=== PATIENT | female | born 1945 | race African-American/Black ===

== ENCOUNTER 2018-05-29 12:05 | Observation (INO) | payer MEDICARE ==
[2018-05-29 13:52] LABS: #Basophils 0.1 thou/uL (0.0-0.2); #Eosinphils 0.1 thou/uL (0.0-0.7); #Lymphocytes 1.9 thou/uL (1.20-3.40); #Monocytes 1.1 thou/uL (0.11-0.59); #Neutrophils 5.8 thou/uL (1.40-6.50); %Basophils 0.6 % (0.0-1.0); %Eosinophils 1.2 % (0.0-10.0); %Lymphocytes 21.3 % (21.0-51.0); %Monocytes 12.3 % (0.0-10.0); %Neutrophils 64.7 % (42.0-75.0); Hemoglobin 15.4 g/dL (12.0-16.0); Mean Corpuscular HGB CONC 35.3 g/dL (32.0-36.0); Mean Corpuscular Hemoglobin 30.8 pg (27.0-31.0); Mean Corpuscular Volume 87.3 fL (78.0-98.0); Mean Platelet Volume 11.2 fL (7.4-10.4); Platelet Count 167 thou/uL (130-400); RBC Distribution Width 13.9 % (11.5-14.5)
[2018-05-29 13:53] LABS: Prothrombin Time 13.5 SEC (12.0-14.7)
[2018-05-29 13:54] LABS: PTT 20.8 SEC (22.9-36.1)
--- NOTE | 2018-05-29 14:14 | RAD ---
CERVICAL SPINE 4 VIEWS: DATE: 05/29/2018. HISTORY: Fall, trauma, pain. FINDINGS: Open mouth odontoid view demonstrates a normal-appearing dens in C1-2 articulation. Cervical vertebr al body height and alignment demonstrate no significant anterolisthesis or retrolisthesis. Artifact from a collar limits detailed assessment of the prevertebral soft tissues. At C5-6, there i s disk space narrowing and anterior osteophyte formation. IMPRESSION: No obvious acute abnormality. Artifact slightly limits detailed assessment. Recommend further evalu ation with CT if symptoms persist given history of trauma and pain. POS: VINCENT
[2018-05-29 14:17] LABS: ALT (SGPT) 13 U/L (8-55); AST (SGOT) 15 U/L (5-34); Albumin 4.3 g/dL (3.4-4.8); Alkaline Phosphatase 55 U/L (40-150); Anion Gap 15 mmol/L (10-20); BUN (Urea Nitrogen) 14 mg/dL (9.8-20.1); Bilirubin, Total 0.8 mg/dL (0.2-1.2); Calc. Creatinine Clearance 0 mL/min (70-130); Calcium 9.6 mg/dL (7.8-10.44); Carbon Dioxide 19 mmol/L (23-31); Chloride 110 mmol/L (98-107); Estimated GFR-MDRD 66; Globulin 2.9 g/dL (2.4-3.5); Glucose 93 mg/dL (83-110); Potassium 3.7 mmol/L (3.5-5.1); Protein, Total 7.2 g/dL (6.0-8.3); Sodium 140 mmol/L (136-145)
--- NOTE | 2018-05-29 14:19 | HP ---
CHIEF COMPLAINT: Fall. HISTORY OF PRESENT ILLNESS: This is a 72-year-old female, who fell off a ladder taken down some decorations in her garage. No loss of consciousness. She remembers the full events. Complaining of right-sided scalp pain and some right-sided neck pain. Seen in the emergency room by Dr. Muñoz. CT scan reveals some subarachnoid blood, tiny subdural hematoma. Neurosurgery has recommended observation and admission to the Trauma Service. The patient denies significant headache, double vision, or motor or sensory loss. She has been hemodynamically neurologically stable since presentation. PAST MEDICAL HISTORY: Hypertension. PAST SURGICAL HISTORY: She denies. MEDICATIONS: Losartan. ALLERGIES: NO KNOWN DRUG ALLERGIES. SOCIAL HISTORY: No smoking, alcohol, or other drugs. REVIEW OF SYSTEMS: Ten system review of systems otherwise negative unless described above. PHYSICAL EXAMINATION: VITAL SIGNS: Blood pressure is 136/77. Her pulse is 80. Her respirations are 14. She is afebrile. HEENT: Pupils 4 mm, reactive bilateral. No oral facial trauma. There is some tenderness to the back of the scalp without laceration. NECK: C-collar is left in place. There is mild right upper posterior neck tenderness, but no tenderness in the cervical posterior midline. No expanding hematoma or bruit. CHEST: Clear. HEART: Regular rate and rhythm. ABDOMEN: Soft, nontender. EXTREMITIES: Lower extremities; no edema or ischemia. Motor and sensory intact throughout. DIAGNOSTIC DATA: CT head, bilateral small amount of subarachnoid blood with a small subdural. CT C-spine is done, but the results are pending. ASSESSMENT: 1. Closed head injury with a small amount of subarachnoid blood, question of small subdural. Neurologically intact. 2. Neck pain, pending results of C-spine CT. PLAN: Admit to observation. Continue her losartan. Followup CT scan. We will await full Neurosurgery recommendations. Job ID: [id number]
--- NOTE | 2018-05-29 14:24 | CT ---
HEAD CT WITHOUT CONTRAST: DATE: 05/29/2018. COMPARISON: None. HISTORY: Fall, trauma, pain, headache. TECHNIQUE: Axial CT imaging is obtained at 5 mm intervals from vertex through the skull base without contrast. FINDINGS: The imaged paranasal sinuses/mastoid air cells demonstrate no acute abnormality. Wall thickening of bilateral maxillary sinuses suggests chronic sinusitis. Vague areas of linear hyperdensity are noted in cortical sulci in the frontoparietal regions bilatera lly, on the left on image 21 and on the right on image 20 suggesting small-volume lateral subarachnoi d blood. No midline shift or mass effect. IMPRESSION: Findings suggesting small-volume bilateral subarachnoid blood. Results called to Dr. Muñoz at 12:55 p.m. 05/29/2018. CODE CR POS: VINCENT
--- NOTE | 2018-05-29 15:23 | CT ---
CT CERVICAL SPINE: Multiple axial tomograms were obtained through the cervical spine with multiplanar reconstruction. INDICATION: Trauma. Fall with injury to neck. FINDINGS: Cervical vertebrae maintain height and alignment. There are mild degenerative changes noted. No harman dence of fracture. Mild posterior spondylosis at C4-5 and C5-6 levels. Soft tissues show mildly enlarged heterogeneous multinodular thyroid. IMPRESSION: 1. Mild degenerative changes cervical spine. No evidence of fracture. 2. Mildly enlarged and heterogeneous multinodular thyroid gland is noted. POS: VINCENT
[2018-05-29] MEDS ORDERED: Ondansetron ODT 4 MG TAB PO PRN (15:29)
[2018-05-29] MEDS ORDERED: Ondansetron PF 4 MG/2 ML Vial IVP PRN (15:29)
[2018-05-29] MEDS ORDERED: Dextrose 5% in Water 1,000 ML IV PRN (15:29)
[2018-05-29] MEDS ORDERED: Dextrose 50% Abboject 50 ML SYRINGE SLOW IVP PRN (15:29)
[2018-05-29] MEDS ORDERED: traMADol HCl 50 MG TAB PO PRN (15:29)
[2018-05-29] MEDS ORDERED: Cyclobenzaprine 10 MG TAB PO PRN (15:29)
[2018-05-29] MEDS ORDERED: Acetaminophen 1,000 MG in Premix Bag 1 BAG IVPB SCH (15:29)
[2018-05-29] MEDS ORDERED: hydrALAZINE 20 MG/ML VIAL SLOW IVP PRN (15:29)
[2018-05-29 18:50] VITALS: BMI 35.0
--- NOTE | 2018-05-29 20:53 | CON ---
DATE OF CONSULTATION: HISTORY OF PRESENT ILLNESS: Ms. Nataly Santos was brought to the Emergency Department this afternoon due to a fall. She states that she was helping her daughter put away some boxes in the attic of her garage. She was on the ladder. She lost her balance and fell backwards and hit her head on the concrete floor. The patient denies any loss of consciousness. She states that she has pain where she hit her head in the occipital region and some neck pain as well as right trapezius pain. The patient denies any blood thinners, aspirin, or fish oil. She has not had any prior strokes, bleeds, heart attacks, or blood clots. She is moving all 4 extremities. She denies any sensory deficits. She is a normally pretty active woman, and so this is quite upsetting for her. REVIEW OF SYSTEMS: A 10-point review of systems has been completed and is negative other than stated in the above HPI. ALLERGIES: NO KNOWN DRUG ALLERGIES. MEDICATIONS: Losartan and hydrochlorothiazide 50 mg-12.5 mg. PAST SURGICAL HISTORY: Bilateral foot surgery for hammer toe and shoulder surgery to have a cyst removed. PAST MEDICAL HISTORY: Hypertension. SOCIAL HISTORY: The patient denies alcohol or drug use. No smoking history. She is an independent lady who lives with her in their home in [facility]. PHYSICAL EXAMINATION: VITAL SIGNS: Blood pressure 149/78, heart rate 67, respirations 18, temperature 98.4, and 99% O2 on room air. CONSTITUTIONAL: The patient is alert and oriented. She is resting comfortably in the hospital bed. She is afebrile, normotensive, nontoxic. HEENT: Head is normocephalic. She has a hematoma on the occipital region of her head. She has a right lateral neck pain. Pupils are equal, round, and reactive to light. Extraocular movements are intact. Hearing is intact. Moist mucous membranes. LUNGS: Respirations, normal work of breathing on room air. CARDIAC: Regular rate and rhythm. Normal S1 and S2. EXTREMITIES: The patient is moving all 4 extremities well. She has 5/5 strength in deltoids, biceps, triceps, legal billing coordinator strength, hip flexion, knee flexion, knee extension, dorsiflexion, plantar flexion. No sensory deficits noted. NEUROLOGIC: The patient is alert and oriented x4. She has normal fund of knowledge. Speech is spontaneous and fluent. Short-term and long-term memory are intact. There are no focal motor or sensory deficits noted. There is no pronator drift. Cranial nerves II through XII are tested and intact. IMAGING DATA: CT brain shows a very small amount of bilateral subarachnoid hemorrhage in cortical sulci in the parietal regions bilaterally. CT of the cervical spine shows some mild degenerative changes of the spinal cord, but no acute fractures. There are also was noted mildly enlarged heterogeneous multinodular thyroid gland. ASSESSMENT AND PLAN: Trauma is admitting Ms. Nataly Santos for bilateral subarachnoid hemorrhage. We will get regular neuro checks, keep her blood pressure below 150. She is not on any blood thinners. She is good and make sure that she does not take any aspirin or fish oil for the next 2 weeks. We will get a repeat CT scan of her head in the morning and the patient should follow up with her primary care for the thyroid nodules noted on CT. Job ID: [id number]
[2018-05-29] MEDS: Acetaminophen 500 MG TAB PO SCH (21:13)
[2018-05-29] MEDS: Famotidine 20 MG TAB PO SCH (21:13)
[2018-05-30] MEDS: Acetaminophen 500 MG TAB PO SCH ×2 (03:24→11:00)
[2018-05-30 06:52] LABS: Hemoglobin 14.1 g/dL (12.0-16.0); Lymphocytes 37 % (21-51); MDiff Complete? YES; Mean Corpuscular HGB CONC 35.1 g/dL (32.0-36.0); Mean Corpuscular Hemoglobin 30.3 pg (27.0-31.0); Mean Corpuscular Volume 86.3 fL (78.0-98.0); Mean Platelet Volume 10.8 fL (7.4-10.4); Monocytes 6 % (0-10); Neutrophil 57 % (42-75); Platelet Count 165 thou/uL (130-400); Platelet Morphology Comment Appears Adequate; RBC Distribution Width 13.7 % (11.5-14.5); Red Blood Cell (RBC) Count 4.66 mill/uL (4.20-5.40)
[2018-05-30 06:54] LABS: Anion Gap 10 mmol/L (10-20); BUN (Urea Nitrogen) 11 mg/dL (9.8-20.1); Calc. Creatinine Clearance 81 mL/min (70-130); Calcium 9.1 mg/dL (7.8-10.44); Carbon Dioxide 23 mmol/L (23-31); Chloride 111 mmol/L (98-107); Estimated GFR-MDRD 75; Glucose 99 mg/dL (83-110); Potassium 3.7 mmol/L (3.5-5.1); Sodium 140 mmol/L (136-145)
[2018-05-30] MEDS: Famotidine 20 MG TAB PO SCH (09:23)
--- NOTE | 2018-05-30 10:00 | PRG ---
DATE OF SERVICE: 05/30/2018 NEUROSURGERY PROGRESS NOTE. I met Nataly Santos in her hospital room this morning. I reviewed her imaging records and medical history and I agreed with the notes of Brandee Dorsey PA-C, dated 05/29/2018. Briefly, Nataly Santos is a 72-year-old woman, was helping to move boxes into the attic of her daughter yesterday, when she fell on 1st or 2nd step of the ladder. She fell backwards and her head did strike the concrete. She was brought to the emergency department, where CT examination of the brain revealed a tiny amount of traumatic subarachnoid hemorrhage in the sulci over the convexities on the left and the right side. Repeat imaging has been done this morning, showing resolution on the right, but some residual blood on the left. It is no larger than it was yesterday. Overnight, Ms. Santos has had headache, but no new neurological deficit. Blood pressures have been in the 120s to 140s. Other vital signs have been stable. When I see Ms. Santos, she is awake, she is alert. She is talking appropriately. There is no dysphasia. Cranial nerves are working well. There are no lateralizing motor or sensory deficits. CT imaging this morning, as noted, shows improvement in the traumatic subarachnoid hemorrhage. Ms. Santos is ready for discharge. I did talk to her about the possibility of vertigo after head injury, the likelihood of headaches, and the possibility of cognitive alteration. Given that her symptoms are particularly mild this morning, I do not think they will be a problem, but she knows to call the ER. Before going home, she will need to prove to the nursing staff that she is safe for the activities of daily living. Followup arrangements will be made for CT scan in two weeks. She will remain off blood thinners until then. Job ID: [id number]
[2018-05-30 12:45] VITALS: BP 116/75; TEMP 97.9
--- NOTE | 2018-05-30 14:34 | DIS ---
DATE OF ADMISSION: 05/29/2018 DATE OF DISCHARGE: 05/30/2018 ADMISSION DIAGNOSES: 1. Status post fall 2. Bilateral Subarachnoid Hemorrhage CONSULTATIONS: Neurosurgery, Dr. Dubon. PROCEDURES: None. HISTORY OF PRESENT ILLNESS: The patient is a 72-year-old woman, who was trying to move some boxes while on a ladder when she fell and landed on a concrete floor. She was brought to the emergency department, where she underwent evaluation and examination and was noted to have subarachnoid hemorrhage and was admitted to the hospital for close observation and a repeat head CT the following morning. The patient did well overnight. Her pain was controlled with nonnarcotic pain medication. She was tolerating a diet and was ambulating. The patient will follow up with Dr. Dubon in 2 weeks for repeat head CT. Dr. Dubon advised her to avoid any blood thinners to include aspirin or nonsteroidal anti-inflammatory medications. He also gave her strict return precautions to follow up sooner if needed. The patient may follow up with the Trauma Clinic if needed. Job ID: [id number] [facility]
--- NOTE | 2018-05-30 16:53 | CT ---
PRELIMINARY REPORT/[facility]/EMERGENTY AFTER-HOURS PROCEDURE CT Head Without Contrast EXAM DATE/TIME: 05/30/2018 4:03 AM CLINICAL HISTORY: 72 years old, female; Condition or disease; Other: Sah; Patient HX: F/u sah TECHNIQUE: Axial computed tomography images of the head/brain without contrast. COMPARISON: CT Brain WO Con 05/29/2018 12:50 PM FINDINGS: Brain: Multifocal subarachnoid hemorrhage has mostly resolved. Only minimal residual subarachnoid hem orrhage is visible in the left frontal lobe. Mild generalized volume loss of the brain. No brain estuardo a. Ventricles: Normal. No ventriculomegaly. Bones/joints: Normal. No acute fracture. Sinuses: Normal as visualized. No acute sinusitis. Mastoid air cells: Normal as visualized. No mastoid effusion. Soft tissues: Normal. IMPRESSION: Multifocal subarachnoid hemorrhage has mostly resolved. Only minimal residual subarachnoid hemorrhage is visible in the left frontal lobe. Thank you for allowing us to participate in the care of your patient. Dictated and Authenticated by: Jered Spangler MD 05/30/2018 4:26 AM Central Time ([place] & [place]) FINAL REPORT HEAD CT WITHOUT CONTRAST: DATE: 05/30/2018. COMPARISON: 05/29/2018. HISTORY: Reevaluate subarachnoid hemorrhage seen on the prior examination. FINDINGS: Minimal residual subarachnoid hemorrhage is seen in the left frontal region on axial image 20. No ne w subarachnoid hemorrhage is seen. The volume of subarachnoid hemorrhage has decreased since the karla or examination. Imaged paranasal sinuses/mastoid air cells well aerated. No displaced calvarial fra cture. IMPRESSION: Minimal residual subarachnoid hemorrhage in left frontal region as detailed above. POS: VINCENT
== END 2018-05-30 12:59 | disposition home or self-care (01) ==
LOC: ERS 12:05 → SURG B 15:29
PROVIDERS: ADMIT Surgery; ATTEND Surgery
DX: S06.6X9A Traumatic subarachnoid hemorrhage with loss of consciousness of unspecified duration, initial encounter (principal); I10 Essential (primary) hypertension; Z79.899 Other long term (current) drug therapy; Z98.890 Other specified postprocedural states; W11.XXXA Fall on and from ladder, initial encounter
CPT/HCPCS: 70450 ×2; 72040; 72125; 80048; 80053; 85025 ×2; 85610; 85730; 97116; 97139; 99285; G0378 ×2; 36415

== ENCOUNTER 2018-07-02 10:08 | Inpatient (IN) | payer MEDICARE ==
--- NOTE | 2018-07-02 06:15 | HP ---
HISTORY OF PRESENT ILLNESS: Ms. Santos returns one month after her evaluation of traumatic subarachnoid hemorrhage. In May, she fell from an attic ladder and struck the back of her head. There was some traumatic subarachnoid hemorrhage but she did not require surgery. She is back with a CT scan from [facility]. Over the last couple of weeks, she has had worsening headaches, but no loss of motor function, no cognitive change, no sensory loss. REVIEW OF SYSTEMS: 10-point review of systems has been completed and is negative other than stated in the above HPI. ALLERGIES: NO KNOWN DRUG ALLERGIES. MEDICATIONS: 1. Losartan. 2. Hydrochlorothiazide. PAST SURGICAL HISTORY: Bilateral foot surgery for hammer toe and shoulder surgery. PAST MEDICAL HISTORY: Hypertension. SOCIAL HISTORY: The patient denies alcohol or drug use. No smoking history. She is an independent lady, who lives with her in their home in [facility]. PHYSICAL EXAMINATION: CONSTITUTIONAL: The patient is alert and oriented. RESPIRATIONS: Normal work of breathing on room air. NEUROLOGIC: Cranial nerves intact. Cerebellar exam, there is no truncal ataxia. Gait and station are normal. Motor exam, no drift. Sensory exam, no neglect. IMAGING: CT of the brain, no traumatic subarachnoid hemorrhage, but there is now a large chronic subdural hemorrhage over the right hemisphere greater than 12 mm thick with local mass effect. ASSESSMENT AND PLAN: Nontraumatic chronic subdural hemorrhage. Dr. Dubon has offered/recommended a kay hole evacuation of subdural hemorrhage. Informed consent has been given, and we have discussed the indications, risks, benefits, alternatives, expected results from surgery. The risks discussed include, but are not limited to infection, bleeding, CSF leak, brain damage, significant loss of neurologic function, seizures, stroke, dependence of normal care, cardiopulmonary complications of anesthesia, or . Long-term complications discussed include, but are not limited to, recurrence and the need for future surgery. The patient states she understands the risks and is willing to proceed with surgery. Job ID: [id number]
[2018-07-06 08:19] LABS: Hemoglobin 15.1 g/dL (12.0-16.0); Mean Corpuscular HGB CONC 34.6 g/dL (32.0-36.0); Mean Corpuscular Hemoglobin 30.6 pg (27.0-31.0); Mean Corpuscular Volume 88.5 fL (78.0-98.0); Mean Platelet Volume 10.6 fL (7.4-10.4); Platelet Count 197 thou/uL (130-400); RBC Distribution Width 13.6 % (11.5-14.5); Red Blood Cell (RBC) Count 4.93 mill/uL (4.20-5.40)
[2018-07-06 08:27] LABS: PTT 26.9 SEC (22.9-36.1); Prothrombin Time 13.4 SEC (12.0-14.7)
[2018-07-06 08:45] LABS: Anion Gap 14 mmol/L (10-20); BUN (Urea Nitrogen) 15 mg/dL (9.8-20.1); Calc. Creatinine Clearance 76 mL/min (70-130); Calcium 10.1 mg/dL (7.8-10.44); Carbon Dioxide 24 mmol/L (23-31); Chloride 107 mmol/L (98-107); Estimated GFR-MDRD 71; Glucose 103 mg/dL (83-110); Potassium 4.1 mmol/L (3.5-5.1); Sodium 141 mmol/L (136-145)
[2018-07-06] MEDS ORDERED: Thrombin 5000 UNITS/5 ML VIAL ONE (10:10)
[2018-07-06] MEDS ORDERED: Lidocaine 0.5%/Epinephrine 1:200,000 50 ml Vial ONE ×2 (10:10→10:12)
[2018-07-06] MEDS ORDERED: Fentanyl 100 MCG/2 ML VIAL ONE ×3 (10:40→16:29)
[2018-07-06] MEDS ORDERED: Sodium Chloride 0.9% 0 ML ONE (11:46)
[2018-07-06] MEDS ORDERED: Sodium Chloride 0.9% 20 ML ONE (11:54)
[2018-07-06] MEDS ORDERED: CEFAZOLIN/Water 2 GM/20 ML SYRINGE SLOW IVP SCH (12:30)
[2018-07-06] MEDS ORDERED: diphenhydrAMINE 50 MG/ML VIAL IVP PRN (12:30)
[2018-07-06] MEDS ORDERED: Ondansetron PF 4 MG/2 ML Vial IVP PRN (12:30)
[2018-07-06] MEDS ORDERED: Cepastat Lozenges 1 LOZ PO PRN (12:30)
[2018-07-06] MEDS ORDERED: hydrALAZINE 20 MG/ML VIAL SLOW IVP PRN (12:30)
[2018-07-06] MEDS ORDERED: Promethazine HCl 25 MG/ML VIAL IM PRN ×2 (12:30→13:19)
[2018-07-06] MEDS ORDERED: Promethazine 25 MG TAB PO PRN (12:30)
[2018-07-06] MEDS ORDERED: Docusate 100 MG CAP PO PRN (12:30)
[2018-07-06] MEDS ORDERED: Acetaminophen 325 MG TAB PO PRN (12:30)
[2018-07-06] MEDS ORDERED: Labetalol HCl 100 MG/20 ML VIAL SLOW IVP PRN (12:30)
[2018-07-06] MEDS ORDERED: Mag-Al 1200 mg/1200 mg/30 ML UDCUP PO PRN (12:30)
[2018-07-06] MEDS ORDERED: Acetaminophen 650 MG Suppository PR PRN (12:30)
[2018-07-06] MEDS ORDERED: diphenhydrAMINE 50 MG CAP PO PRN (12:30)
[2018-07-06] MEDS ORDERED: Acetaminophen 500 MG TAB PO PRN (12:40)
[2018-07-06] MEDS ORDERED: Ondansetron HCl/PF 4 MG/2 ML Vial IVP PRN (13:19)
[2018-07-06] MEDS ORDERED: Promethazine HCl 25 MG/ML VIAL SLOW IVP PRN (13:19)
[2018-07-06] MEDS ORDERED: Morphine 4 MG/ML VIAL SLOW IVP PRN (13:24)
--- NOTE | 2018-07-06 13:30 | OP ---
DATE OF PROCEDURE: 07/06/2018 QUALITY ANALYST/TECHNICAL WRITER: Brandee Dosrey PA-C. PREOPERATIVE INDICATION: Prevent neurological deterioration. PREOPERATIVE DIAGNOSIS: Enlarging chronic subdural hematoma, right hemisphere. POSTOPERATIVE DIAGNOSIS: Enlarging chronic subdural hematoma, right hemisphere. PROCEDURE PERFORMED: Kay hole evacuation of right-sided subdural hematoma. PREOPERATIVE MEDICATIONS: Ancef 2 g IV. DRAIN NUMBER: 1. DRAIN TYPE: 10-Barbadian red rubber catheter in the subdural space. DESCRIPTION OF PROCEDURE: The patient was brought to the operating room. The patient was carefully positioned on the operating table with her head supported by a gel-filled doughnut shaped headrest and the head was turned gently to the left. Hair was removed in a parasagittal fashion over the right scalp. We planned a frontal and a parietal incisions and exit point for a drain. Under our planned incisions, we infused local anesthetic. The scalp was sterilely prepped and draped. We opened our two incisions with a 10 blade knife and controlled bleeding with bipolar and monopolar cautery. We placed self-retaining retractors and retracted all the way down to the periosteum. Using a high-speed drill and a perforating bit, we fashioned kay holes in the frontal and parietal bone. To control bone bleeding, we used a separate high-speed drill with a emily kay, which was excellent for hemostasis. With bipolar cautery, we gently coagulated the dura. We opened the dura in a cruciate fashion, starting at the parietal kay hole and then the frontal kay hole. We coagulated back the leaflets of the dura. There were membranes in the subdural space, they were opened. When the membranes opened, dark colored chronic blood products emanated under pressure. We then irrigated the subdural space with copious amounts of bacitracin irrigation until the irrigant ran free. There was good flow from the frontal kay hole to the parietal kay hole of our irrigation. We placed a small pledget of Gelfoam over the brain through the parietal kay hole and gently over the Gelfoam, we eased in 10-Barbadian drain. We cut extra side-holes in the red rubber catheter and placed it gently in the subdural space. We tunneled inferiorly through a separate stab incision. We gently irrigated through the catheter and the irrigant came out of the kay holes. We connected the distal end of the catheter to a lumbar drain bag and reinforced that connection with silk sutures. We then filled the subdural space with irrigant. We placed Gelfoam over each kay hole and closed our incisions with galeal stitches. The skin was stapled closed and our drain exit port was reinforced with a pursestring suture. Irrigant and subdural fluid were coming from the subdural drain, showing good continuity at the completion of our procedure. Sterile dressings were applied. This is a clean case, no contamination. Job ID: [id number]
[2018-07-06] MEDS ORDERED: PROPOFOL 200 MG/20 ML VIAL ONE (15:07)
[2018-07-06] MEDS ORDERED: Rocuronium Bromide 10 MG/ML (10ML VIAL) ONE (15:07)
[2018-07-06] MEDS ORDERED: PHENYLEPHRINE-NS 100 MCG/ML 10 ML SYRINGE ONE (15:07)
[2018-07-06] MEDS ORDERED: Glycopyrrolate 0.2 MG/ML 5 ML SYRINGE ONE (15:07)
[2018-07-06] MEDS ORDERED: Dexamethasone 20 MG/5 ML VIAL ONE (15:07)
[2018-07-06] MEDS ORDERED: Ondansetron PF 4 MG/2 ML Vial ONE (15:07)
[2018-07-06] MEDS ORDERED: Lidocaine 1% PF 5 ML VIAL ONE (15:07)
--- NOTE | 2018-07-06 16:33 | CON ---
DATE OF CONSULTATION: 07/06/2018 SERVICE: Pulmonary Medicine. REASON FOR CONSULTATION: ICU patient. HISTORY OF PRESENT ILLNESS: The patient is a very pleasant 72-year-old female with past medical history significant for fall roughly 1 month ago. She was on the 4th step of the ladder in a garage. She fell backwards, and landed on her back. She struck the back of her head on the concrete. Shortly following this event, she had a headache. She presented to the emergency department. This showed very small changes that remained stable. Ultimately, she was followed up in the outpatient Neurosurgery Clinic. Initially, her headache got better, but she started having increasing headache. She presented to an outpatient appointment with a pre-clinic CT of the head. She had a 12-mm subdural hematoma. She is status post elective kay hole evacuation of that lesion. She never had any significant neurologic defects. That being said, was symptomatic given that she was having these headaches, and sharp discomfort in the appropriate location. She is postop day #0. She is status post kay hole. Drain is in place, and it is putting out serosanguineous fluid. Otherwise, she was in her usual state of health. She denies having any recent fevers, chills, cough, sputum production, nausea, or vomiting. PAST MEDICAL HISTORY: Hypertension. PAST SURGICAL HISTORY: Right hemisphere kay hole with external drain placement. SOCIAL HISTORY: Negative for current tobacco, alcohol, or illicit drug use. She has a former history of illicit drug use, and has never been a heavy drinker. She has about a 30-pack year history of smoking, but quit 25 years ago. She has no exposure to chemicals, dust, asbestos, or tuberculosis. FAMILY HISTORY: Noncontributory. ALLERGIES: NO KNOWN DRUG ALLERGIES. MEDICATIONS: Losartan/hydrochlorothiazide 50/12.5 one tablet p.o. daily. REVIEW OF SYSTEMS: General, head, ears, eyes, nose, throat, cardiovascular, respiratory, GI, , musculoskeletal, neurologic, and skin are negative except as mentioned in the HPI. PHYSICAL EXAMINATION: VITAL SIGNS: Afebrile, pulse 78, respirations 14, blood pressure 132/75, and saturation 98% on 1 L nasal cannula. GENERAL: The patient is awake and alert, in no apparent distress. HEENT: Normocephalic. There is a right-sided external drain in place draining serosanguineous fluid. Sclerae white. Conjunctivae pink. Oral mucosa is moist without lesions. LUNGS: Excellent air entry with no prolonged expiratory phase or wheezing present. HEART: Normal rate and regular. ABDOMEN: Soft, nontender, and nondistended. Bowel sounds are positive. MUSCULOSKELETAL: No cyanosis or clubbing. EXTREMITIES: There is no pitting in the bilateral lower extremities. NEUROLOGIC: Grossly nonfocal. Specifically, her strength is 5/5 and symmetric throughout. Rapidly alternating movements are intact. Cranial nerves are intact. Reflexes are symmetric throughout. Sensation was not tested. LABORATORY DATA: WBC 7.0, hemoglobin 15.1, and platelets 197,000. All of these things are at baseline. INR 1.0. Creatinine 0.94 and at baseline. Basic metabolic profile is otherwise completely unremarkable. Her BUN is 15. ASSESSMENT: 1. Chronic subdural hematoma, right hemisphere, status post kay hole evacuation, postop day #0. 2. Hypertension. DISCUSSION AND PLAN: The patient is doing absolutely fine in the postanesthesia care unit. I will continue to follow along while she remains in the ICU. Frequent neurologic evaluations will be performed to make certain. She does not have any evolution in neurologic disease. P.r.n. labetalol and/or hydralazine will be provided if her blood pressures go up above 160. Job ID: [id number]
[2018-07-06 17:20] VITALS: BMI 34.0
[2018-07-06] MEDS: Morphine 4 MG/ML VIAL SLOW IVP PRN ×2 (18:23→19:35)
[2018-07-06] MEDS: CEFAZOLIN 2 GM in Premix Bag 1 BAG IVPB SCH (18:24)
[2018-07-06] MEDS: Sodium Chloride 0.9% 1,000 ML IV SCH (18:32)
[2018-07-06] MEDS: Famotidine/PF 20 mg/2ml Vial SLOW IVP SCH (19:43)
[2018-07-06] MEDS: Acetaminophen 1,000 MG in Premix Bag 1 BAG IVPB PRN (20:42)
[2018-07-07] MEDS: CEFAZOLIN 2 GM in Premix Bag 1 BAG IVPB SCH ×3 (02:11→16:37)
[2018-07-07] MEDS: Acetaminophen 1,000 MG in Premix Bag 1 BAG IVPB PRN ×3 (04:25→16:35)
[2018-07-07] MEDS: Sodium Chloride 0.9% 1,000 ML IV SCH ×2 (06:14→10:41)
--- NOTE | 2018-07-07 07:05 | PRG ---
DATE OF SERVICE: 07/07/2018 SERVICE: Pulmonary Medicine. INTERVAL HISTORY: The patient is doing fine from a respiratory standpoint. Breathing comfortably. Last night, she had a severe headache. She got 8 mg of morphine and it simply did not touch it. We gave her a dose of IV Tylenol because she is having a hard time swallowing in the supine position. With this, her headache resolved. She denies any current nausea, vomiting, fevers, or chills. She does not have much of an appetite. Otherwise, she has no specific complaints. PHYSICAL EXAMINATION: VITAL SIGNS: Afebrile, pulse 54, blood pressure 139/65, respirations 18, and saturation 95% on room air. GENERAL: The patient is awake and alert, in no apparent distress. LUNGS: Excellent air entry with no prolonged expiratory phase. No wheezing, rhonchi, or crackles are appreciated. HEART: Normal rate and regular. ABDOMEN: Soft, nontender, and nondistended. Bowel sounds are positive. MUSCULOSKELETAL: No cyanosis or clubbing. There is no pitting in bilateral lower extremities. NEUROLOGIC: Grossly nonfocal. IMAGING DATA: CT of the head demonstrates a subdural catheter in place with decrease in shift. ASSESSMENT: 1. Chronic subdural hematoma, right hemispheric, status post kay hole evacuation, postop day 1. 2. Hypertension. DISCUSSION AND PLAN: The patient is doing fine. We will provide her with p.r.n. IV Tylenol for the time being since she is having a hard time taking p.o. Obviously, we cannot use nonsteroidal anti-inflammatory drugs because of the anti-platelet activity. We will continue to monitor her blood pressure. Pulmonary/Critical Care will continue to follow while she remains in the ICU. Hopefully, we will be able to advance her diet today, but I will leave this to Neurosurgery. Job ID: [id number]
--- NOTE | 2018-07-07 08:01 | EKG ---
Test Reason : PREOP Blood Pressure : / mmHG Vent. Rate : 071 BPM Atrial Rate : 071 BPM P-R Int : 166 ms QRS Dur : 106 ms QT Int : 416 ms P-R-T Axes : 056 -02 062 degrees QTc Int : 452 ms Sinus rhythm with Premature atrial complexes Possible Inferior infarct , age undetermined Abnormal ECG No previous ECGs available Confirmed by JOSE MARES ([id number]) on 07/07/2018 8:00:46 AM Referred By: DAISY Confirmed By:JOSE MARES
[2018-07-07] MEDS: traMADol HCl 50 MG TAB PO PRN ×2 (08:48→14:40)
[2018-07-07] MEDS: Famotidine/PF 20 mg/2ml Vial SLOW IVP SCH (08:49)
--- NOTE | 2018-07-07 09:15 | CT ---
PRELIMINARY REPORT/[facility]/EMERGENTY AFTER-HOURS PROCEDURE CT Head Without Contrast EXAM DATE/TIME: 07/07/2018 4:10 AM CLINICAL HISTORY: 72 years old, female; Condition or disease; Other: Craniotomy; Patient HX: S/P craniotomy TECHNIQUE: Axial computed tomography images of the head/brain without contrast. COMPARISON: CT Brain WO Con 05/30/2018 4:03 AM FINDINGS: Brain: There is moderate residual subdural fluid in the right frontal/parietal regions, maximum thick ness about 12 mm. Most of the fluid is low in attenuation, close to CSF density. Couple of small area s of residual high attenuation subdural blood. Moderate focal mass effect in the right frontal region. There is 4-5 mm of [id number] midline shift. Small amounts of subarachnoid blood are seen bilaterally, most noticeable in the left parietal and te mporal regions. Eventual comparison with any available prior exams will be helpful No definite acute infarct by CT. MRI could be more sensitive/specific for detection, as clinically di rected. Ventricles: Ventricle size is normal for age. Bones/joints: Interval right craniotomy. Interval placement a right subdural drainage tube. Small amounts of intracranial gas. Sinuses: Included paranasal sinuses are essentially clear. Mastoid air cells: No significant acute finding. IMPRESSION: 1. Postsurgical changes as discussed above. 2. Moderate residual predominantly low attenuation subdural fluid in the right frontal/parietal regio ns, see above details. Couple of small areas of residual high attenuation subdural blood. 3. Moderate focal mass effect, with 4-5 mm of [id number] midline shift. 4. Small amounts of subarachnoid blood are seen bilaterally, most noticeable in the left parietal and temporal regions. 5. No definite acute infarct by CT, see above. 6. Eventual comparison with any available prior exams will be helpful. Thank you for allowing us to participate in the care of your patient. Dictated and Authenticated by: Dmitry Stinson MD 07/07/2018 5:09 AM Central Time ([place] & [place]) FINAL REPORT EMERGENT AFTER HOURS CT BRAIN WITHOUT CONTRAST: FINDINGS/IMPRESSION: 1. I agree with the findings and impression given in the preliminary report, per the [facility] physician. There is interval placement of a catheter in the right extraaxial/subdural space with a small amoun t of pneumocephalus in this location. 2. There is subarachnoid blood seen bilaterally, left greater than right. POS: [facility]
[2018-07-07 12:11] VITALS: TEMP 98.8
--- NOTE | 2018-07-07 12:11 | PRG ---
DATE OF SERVICE: 07/07/2018 I saw Ms. Santos early this morning in the ICU. She remained flat after a CAT scan, which I have reviewed. She was doing quite well when I visited with her, and her vitals are stable. Her neurological examination was excellent, and the CT scan showed good resolution of the subdural hematoma. Any residual fluid in the subdural space was quite thin, and it was irrigant more so than any new blood products. I believe the drain could be removed today. She can slowly get up and sit by lunchtime, and she is ambulating and safe for activities of daily living. She can be discharged this afternoon. Job ID: [id number]
[2018-07-07 17:12] VITALS: BP 157/81
== END 2018-07-07 17:55 | disposition home or self-care (01) | DRG 27 ==
LOC: SURG A 07-06 07:37 → CCU 07-06 15:52
PROVIDERS: ADMIT Neurological Surgery; ATTEND Neurological Surgery
PROC: 00C40ZZ Extirpation of Matter from Intracranial Subdural Space, Open Approach (ICD-10-PCS; principal; 2018-07-06)
DX: I62.03 Nontraumatic chronic subdural hemorrhage (principal); I10 Essential (primary) hypertension
CPT/HCPCS: 36415; 70450; 80048; 85027; 85610; 85730; 93005; 93010; J0131; J1100; J2001; J2270; J2405; J2704; J3010; J3490; S0028

== ENCOUNTER 2018-08-04 09:42 | Outpatient (CLI) | payer MEDICARE ==
--- NOTE | 2018-08-04 11:58 | CT ---
HEAD CT WITHOUT CONTRAST: History: Patient fell and hit back of head in May. Previous surgery to remove hemorrhage and pres sure. Comparison: 07-07-18 FINDINGS: Amina hole defects in the right calvarium are noted. Previously noted extraaxial drainage catheter is no longer appreciated. There is a small amount of chronic blood along the right frontal extraaxial co nvexity with mild mass effect right frontal lobe. This hyperdense collection measures approximately 4 mm. Acute extraaxial/intraparenchymal hemorrhage is not appreciated. No midline shift. Basilar ciste rns are patent. Brain volume is age appropriate. Cortical brice white matter differentiation is preser anand. No hydrocephalus. Adequate aeration of the sinuses and mastoid air cells. 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 Mild mass effect upon the right frontal lobe without evidence of significant midline shift. POS: [facility]
== END 2018-08-04 09:43 | disposition home or self-care (01) ==
LOC: SCSCT 09:42
PROVIDERS: ATTEND Neurological Surgery
DX: I62.03 Nontraumatic chronic subdural hemorrhage (principal)
CPT/HCPCS: 70450

== ENCOUNTER 2023-03-25 10:53 | Outpatient (CLI) | payer MEDICARE ==
[2023-03-25 13:03] LABS: ALT (SGPT) 13 U/L (8-55); AST (SGOT) 16 U/L (5-34); Albumin 4.3 g/dL (3.4-4.8); Alkaline Phosphatase 62 U/L (40-110); Anion Gap 13 mmol/L (10-20); BUN (Urea Nitrogen) 12 mg/dL (9.8-20.1); Bilirubin, Total 1.3 mg/dL (0.2-1.2); Calc. Creatinine Clearance 0 mL/min (70-130); Calcium 9.5 mg/dL (7.8-10.44); Carbon Dioxide 24 mmol/L (23-31); Chloride 108 mmol/L (98-107); Estimated GFR 68; Globulin 2.4 g/dL (2.4-3.5); Glucose 89 mg/dL (83-110); Potassium 3.9 mmol/L (3.5-5.1); Protein, Total 6.7 g/dL (5.8-8.1); Sodium 141 mmol/L (136-145)
[2023-03-25 13:12] LABS: #Basophils 0.1 10x3/uL (0.0-0.2); #Eosinphils 0.3 10x3/uL (0.0-0.5); #Monocytes 1.3 10x3/uL (0.0-1.1); #Neutrophils 3.7 10x3/uL (1.5-8.4); %Basophils 1.2 % (0.0-2.0); %Eosinophils 4.5 % (0.0-6.0); %Monocytes 17.8 % (0.0-10.0); %Neutrophils 48.8 % (40.0-75.0); Hematocrit 41.1 % (34.9-44.5); Hemoglobin 14.3 g/dL (12.0-15.5); Mean Corpuscular HGB CONC 34.8 g/dL (32.0-36.0); Mean Corpuscular Hemoglobin 28.1 pg (27.0-33.0); Mean Corpuscular Volume 80.9 fl (81.6-98.3); Platelet Count 134 10x3/uL (150-450); Red Blood Cell (RBC) Count 5.08 10x6/uL (3.90-5.03); White Blood Cell (WBC) Count 7.5 10x3/uL (3.5-10.5)
== END 2023-03-25 10:54 | disposition home or self-care (01) ==
LOC: LABBT 10:53
PROVIDERS: ATTEND Surgery
DX: Z01.818 Encounter for other preprocedural examination (principal); D17.20 Benign lipomatous neoplasm of skin and subcutaneous tissue of unspecified limb
CPT/HCPCS: 80053; 85025; 93005; 93010

== ENCOUNTER 2023-03-27 08:21 | Day surgery (SDC) | payer MEDICARE ==
[2023-03-25 12:08] VITALS: BMI 33.3
[2023-03-27] MEDS ORDERED: Bupivacaine 0.25% HCL 30 ML VIAL ONE (10:27)
[2023-03-27] MEDS ORDERED: EPINEPHrine 1 MG/ML VIAL ONE (10:27)
[2023-03-27] MEDS ORDERED: fentaNYL PF 100 MCG/2 ML SYRINGE ONE (10:29)
[2023-03-27] MEDS ORDERED: Sodium Chloride 0.9% 100 ML ONE (10:37)
[2023-03-27] MEDS ORDERED: CEFAZOLIN 2 GM VIAL ONE (10:37)
[2023-03-27] MEDS ORDERED: Dexamethasone 20 MG/5 ML VIAL ONE (10:45)
[2023-03-27] MEDS ORDERED: Glycopyrrolate 0.2 MG/ML 5 ML SYRINGE ONE (10:45)
[2023-03-27] MEDS ORDERED: PROPOFOL 200 MG/20 ML VIAL ONE (10:45)
[2023-03-27] MEDS ORDERED: Ondansetron PF 4 MG/2 ML Vial ONE (10:45)
[2023-03-27] MEDS ORDERED: Lidocaine 1% PF 5 ML VIAL ONE (10:45)
[2023-03-27] MEDS ORDERED: HYDROcodone/Acetaminophen 5/325 mg Tablet ONE (13:01)
[2023-03-27] MEDS ORDERED: hydrALAZINE 20 MG/ML VIAL ONE (13:07)
== END 2023-03-27 13:54 | disposition home or self-care (01) ==
LOC: SDC 08:21
PROVIDERS: ATTEND Surgery
PROC: 0HBCXZZ Excision of Left Upper Arm Skin, External Approach (ICD-10-PCS; principal; 2023-03-27)
DX: D17.22 Benign lipomatous neoplasm of skin and subcutaneous tissue of left arm (principal)
CPT/HCPCS: 11406; J0171; J0360; 88304; J1100; J2405; J2704; J3490; S0020

== ENCOUNTER 2023-04-03 16:43 | Emergency (ER) | payer MEDICARE | END 2023-04-03 18:08 | disposition home or self-care (01) | LOC: ERS 16:43 | DX: L76.32 Postprocedural hematoma of skin and subcutaneous tissue following other procedure (principal); I10 Essential (primary) hypertension; Z79.899 Other long term (current) drug therapy | CPT/HCPCS: 87070; 87205; 99283 ==

== ENCOUNTER 2023-04-04 13:10 | Emergency (ER) | payer MEDICARE | END 2023-04-04 15:55 | disposition home or self-care (01) | LOC: ERS 13:10 | DX: L76.22 Postprocedural hemorrhage of skin and subcutaneous tissue following other procedure (principal); I10 Essential (primary) hypertension | CPT/HCPCS: 99283 ==

== ENCOUNTER 2024-04-21 13:45 | Outpatient (CLI) | payer MEDICARE | END 2024-04-21 13:46 | disposition home or self-care (01) | LOC: BICMAMMO 13:45 | PROVIDERS: ATTEND Internal Medicine | DX: Z12.31 Encounter for screening mammogram for malignant neoplasm of breast (principal); Z91.89 Other specified personal risk factors, not elsewhere classified | CPT/HCPCS: 77063; 77067 ==

== ENCOUNTER 2025-04-27 12:53 | Outpatient (CLI) | payer MEDICARE | END 2025-04-27 12:54 | disposition home or self-care (01) | LOC: BICMAMMO 12:53 | PROVIDERS: ATTEND Internal Medicine | DX: Z12.31 Encounter for screening mammogram for malignant neoplasm of breast (principal); Z80.3 Family history of malignant neoplasm of breast; Z91.89 Other specified personal risk factors, not elsewhere classified | CPT/HCPCS: 77063; 77067 ==